=== PATIENT | female | born 1955 | race Caucasian/White ===

== ENCOUNTER 2022-08-17 11:15 | Day surgery (SDC) | payer MEDICARE ==
[2022-08-11 14:02] VITALS: BMI 34.9
--- NOTE | 2022-08-16 20:27 | HP ---
HISTORY AND PHYSICAL DATE OF SURGERY: 08/17/2022. HISTORY OF PRESENT ILLNESS: Aundrea Braga is a 66-year-old patient who was seen with progressive left knee pain. We discussed options for treatment. She elected to proceed with left knee arthroscopy. Consent was obtained. We obtained cardiac clearance. PAST MEDICAL HISTORY: Hypertension, hyperlipidemia, cardiovascular disease. PAST SURGICAL HISTORY: Carpal tunnel surgery, knee arthroscopy, ORIF ankle. DAILY MEDICATIONS: 1. Omeprazole. 2. Tramadol. 3. Aspirin. 4. Atorvastatin. 5. Diclofenac. 6. Gabapentin. ALLERGIES: None. SOCIAL HISTORY: Denies tobacco use. PHYSICAL EVALUATION OF THE LEFT KNEE: Range of motion is 0 to 130 degrees. Mild effusion. Tenderness along the medial joint line. Positive medial Kaye's. Ligaments stable. Hip rotation without pain. Distal neurovascular exam is intact. RADIOGRAPHS: Radiographs of the left knee revealed mild osteoarthritis. MRI of left knee revealed medial meniscal tear and effusion. IMPRESSION: 1. Internal derangement of left knee with medial meniscal tear. 2. Hypertension. 3. Hyperlipidemia. 4. Cardiovascular disease. PLAN: Left knee arthroscopy with partial medial meniscectomy and debridement. MMODL / IJN: [id number] /
[~2022-08-17 11:15] MED LIST: DEXAMETHASONE SOD PHOSPHATE 4 MG/ML 1 ML VIAL IV ONE; LACTATED RINGERS 1,000 ML IV SCH; ONDANSETRON 4 MG/2 ML VIAL IVP ONE
[2022-08-17] MEDS ORDERED: BUPIVACAINE (PF) 0.25% 30 ML VIAL SQ ONE ×2 (13:29→14:12)
[2022-08-17] MEDS ORDERED: MIDAZOLAM 2 MG/2 ML VIAL ONE (13:31)
[2022-08-17] MEDS ORDERED: LIDOCAINE 2% INJ 20 MG/ML (2 ML VIAL) ONE (13:31)
[2022-08-17] MEDS ORDERED: PROPOFOL 10 MG/ML 20 ML VIAL IV ONE (13:31)
[2022-08-17] MEDS ORDERED: SUCCINYLCHOLINE CHLORIDE 200 MG/10 ML VIAL IV ONE (13:31)
[2022-08-17] MEDS ORDERED: fentaNYL (PF) 50 MCG/ML 2 ML AMP ONE (13:31)
[2022-08-17] MEDS ORDERED: LACTATED RINGERS 1,000 ML IV ONE (13:37)
--- NOTE | 2022-08-17 14:26 | P.OP ---
Date of Procedure: 08/17/22 Preoperative Diagnosis: Internal derangement left knee Postoperative Diagnosis: 1. Tear medial and lateral meniscus left knee 2. Grade 4 chondromalacia femoral sulcus left knee 3. Reactive synovitis medial, lateral and suprapatellar compartments left knee 4. Grade 2/3 chondromalacia medial femoral condyle left knee Procedure(s) Performed: 1. Arthroscopic partial medial and lateral meniscectomy left knee 2. Arthroscopic microfracture femoral sulcus left knee 3. Arthroscopic partial synovectomy medial, lateral and suprapatellar compartments left knee 4. Arthroscopic chondroplasty medial femoral condyle left knee Anesthesia: YEVGENIYA, local Surgeon: Anatoliy Marin Estimated Blood Loss (ml): 7 Pathology: none sent Condition: stable Disposition: PACU Indications for Procedure: 66-year-old patient who is seen with progressive left knee pain. After having treatment options discussed, she elected to proceed with arthroscopy. Operative Findings: See description of procedure Description of Procedure: Patient was taken to the operative suite. Patient underwent a general anesthetic by the department of anesthesia. Patient was given preoperative antibiotics. The left lower extremity was placed in a well-padded arthroscopic leg krishnamurthy. The left leg was prepped and draped in the normal sterile orthopedic fashion. A lateral parapatellar and suprapatellar incision was made. Trochars were inserted. Arthroscopy was initiated. Suprapatellar pouch revealed diffuse thick reactive synovitis. The patellofemoral joint appeared to articulate congruently. There was grade 3 chondromalacia the patella and areas of grade 4 chondromalacia femoral sulcus with some exposed bone present. The scope was guided into the medial gutter. No loose bodies or plica were identified. The scope was then guided into the medial compartment. A medial parapatellar incision was made. Trocar inserted followed by probe. There was radial tear involving the posterior horn medial meniscus. There were grade 2/3 chondromalacia changes diffusely about the medial femoral condyle with some osteochondral flap tears. There was some thick reactive synovitis anteriorly. I performed a partial medial meniscectomy getting down to stable meniscal tissue. I performed a chondroplasty of the medial femoral condyle getting down to stable osteochondral tissue. I performed a partial synovectomy decompressing the thick reactive synovitis. The residual meniscus was now probed and was found to be stable. The residual osteochondral surface about the medial femoral condyle was stable. There was good decompression of the synovitis. Scope and probe were then guided into the intercondylar notch. Cruciates were identified, probed and found to be stable. The scope and probe were then guided into lateral compartment. There was a radial tear involving the midbody lateral meniscus. There were grade 1 chondromalacia changes of lateral femoral condyle without tears. There was some thick reactive synovitis anteriorly. I performed a partial lateral meniscectomy getting down to stable meniscal tissue. I performed a partial synovectomy decompressing the reactive synovitis anteriorly. The residual meniscus was found to be stable. There was good decompression of the synovitis. The scope was in guided back into the suprapatellar compartment. I introduced a motorized shaver into the suprapatellar compartment. I perfor med a partial synovectomy. Shaver was now removed. I now introduced a microfracture awl into the suprapatellar compartment. I performed a microfracture to the area of exposed bone femoral sulcus penetrating the area of exposed bone with resultant bleeding at the microfracture site. I probed the residual osteochondral surface and it was stable. There was good decompression of the synovitis. I now took one more look around the entire knee, no residual debris. Instruments were now removed from the joint. The joint was infiltrated with .25% Marcaine. Steri-Strips were applied to the portal sites. Sterile dressings were applied. The patient was placed into a GM hose. No tourniquet was utilized. The patient was awakened, transferred to a bed and taken to recovery stable satisfactory condition.
[2022-08-17 14:36] VITALS: TEMP 97.2
[2022-08-17] MEDS: HYDROmorphone 0.5 MG/0.5 ML SYRINGE IVP PRN ×4 (14:40→15:10)
[2022-08-17 15:50] VITALS: RESP 20
[2022-08-17 16:42] VITALS: BP 125/84; PULSE 71
== END 2022-08-17 16:35 | disposition home or self-care (01) ==
LOC: OR 11:15
PROVIDERS: ATTEND Orthopaedic Surgery
DX: S83.242A Other tear of medial meniscus, current injury, left knee, initial encounter (principal); S83.282A Other tear of lateral meniscus, current injury, left knee, initial encounter; M17.12 Unilateral primary osteoarthritis, left knee; M94.262 Chondromalacia, left knee; M65.862 Other synovitis and tenosynovitis, left lower leg; I10 Essential (primary) hypertension; E78.5 Hyperlipidemia, unspecified; I48.91 Unspecified atrial fibrillation; F32.A Depression, unspecified; I25.10 Atherosclerotic heart disease of native coronary artery without angina pectoris; K21.9 Gastro-esophageal reflux disease without esophagitis; Z98.890 Other specified postprocedural states; Z79.82 Long term (current) use of aspirin; Z86.73 Personal history of transient ischemic attack (TIA), and cerebral infarction without residual deficits; Z79.899 Other long term (current) drug therapy; X58.XXXA Exposure to other specified factors, initial encounter
CPT/HCPCS: 29880; 29879; J2250; J0330; J1100; J0690; J2405; J3010; J2704; J1170; J2001